=== PATIENT | female | born 1960 ===

== ENCOUNTER 2021-08-05 17:55 | Emergency (ER) | payer MEDICAID ==
[~2021-08-05] VITALS: Ht 160 cm; Wt 78.0 kg
[2021-08-05 19:36] VITALS: BP 152/76
[2021-08-05] MEDS ORDERED: KETOROLAC TROMETH 60MG/2ML VIAL IM ONE (19:45)
== END 2021-08-05 23:50 | disposition home or self-care (01) ==
LOC: ER 17:55
DX: M75.21 Bicipital tendinitis, right shoulder (principal); E66.9 Obesity, unspecified; Z68.30 Body mass index [BMI] 30.0-30.9, adult
CPT/HCPCS: 73030; 93971; 96372; 99284; J1885